=== PATIENT | male | born 1995 | race Caucasian/White ===

== ENCOUNTER 2023-05-16 22:58 | Emergency (ER) | payer SELFPAY ==
[~2023-05-16] VITALS: Ht 172.7 cm; Wt 90.9 kg
[2023-05-16 23:02] VITALS: BP 144/95; PULSE 73; TEMP 97.7; O2SAT 99
--- NOTE | 2023-05-16 23:10 | NUR ---
the patient is arguing with the officer to have his hand cuffs removed, pt made aware of rationalization to keep them on. aware.
[2023-05-16 23:25] VITALS: RESP 18
--- NOTE | 2023-05-16 23:26 | NUR ---
Pt is alert and oriented x 4 and he is aware of what he is doing. He has refused his xray. Booker, the contract technical writer was just here and the pt refused. Dr Reese here as well and saw this.
== END 2023-05-16 23:40 | disposition left against medical advice (07) ==
LOC: EDBD 23:00 → ER 23:00
DX: Z04.1 Encounter for examination and observation following transport accident (principal); M25.512 Pain in left shoulder; M79.642 Pain in left hand; M25.552 Pain in left hip; Z88.0 Allergy status to penicillin; Z88.1 Allergy status to other antibiotic agents; V49.88XA Car occupant (driver) (passenger) injured in other specified transport accidents, initial encounter; Y93.89 Activity, other specified; Y92.89 Other specified places as the place of occurrence of the external cause; Y99.8 Other external cause status
CPT/HCPCS: 99283